=== PATIENT | male | born 1950 | race Caucasian/White ===

== ENCOUNTER 2024-04-13 20:26 | Emergency (ER) | payer MEDICARE, OTHER ==
--- NOTE | 2024-04-13 20:41 | ED Physician Documentation ---
History of Present Illness - Stated complaint Stated Complaint: DIZZY/VOMIT - Chief complaint Chief Complaint: Neuro - History obtained from History obtained from: Patient - Additonal information Additional information: 73-year-old male with history of bradycardia, vertigo presents by private vehicle for vertigo with vomiting for the last 8 hours. [place]igo began. He states that normally he is able to manage his vertigo on his own, but it became much more severe and was associated with vomiting, which is unusual for him. Patient states this is like his usual vertigo, only much more intense. Worse with eye opening and any head movement Review of Systems Constitutional: denies: Fever, Chills Respiratory: denies: Dyspnea, Cough, Wheezing GI: reports: Nausea, Vomiting. denies: Abdominal Pain, Abdominal Swelling, Constipation, Diarrhea Neurologic: reports: Other (Vertigo). denies: Generalized weakness, Focal weakness, Numbness, Difficulty speaking, Near syncope, Syncope, Seizure, Confused, Headache, Head injury PD PAST MEDICAL HISTORY - Present Medications Home Medications: Ambulatory Orders Medication Instructions Recorded Confirmed Meclizine [Antivert] 25 mg PO Q6H #60 tablet 04/13/24 Ondansetron Odt [Zofran] 4 mg TL Q6H PRN #30 tablet 04/13/24 - Allergies Allergies/Adverse Reactions: Allergies Allergy/AdvReac Type Severity Reaction Status Date / Time No Known Drug Allergies Allergy Verified 04/13/24 20:45 PD ED PE NORMAL - Vitals Vital signs reviewed: Yes - General General: Alert and oriented X 3, Well developed/nourished, Other (eyes closed, uncomfortable appearing) - Cardiac Cardiac: Strong equal pulses, Other (bradycardia) - Respiratory Respiratory: No respiratory distress, Clear bilaterally - Abdomen Abdomen: Soft, Non tender, Non distended - Derm Derm: Normal color, Warm and dry, No rash - Extremities Extremities: No deformity, No tenderness to palpate, Normal ROM s pain, No edema - Neuro Neuro: Alert and oriented X 3, natural resources technician 2-12 intact, No motor deficit, No sensory deficit, Normal speech - Psych Psych: Normal mood, Normal affect, Other (appropriate for condition) Results - Vitals Vitals: Vital Signs - 24 hr 04/13/24 04/13/24 04/13/24 20:32 21:03 21:12 Temperature 36.0 C L 36.0 C L Heart Rate 54 L 43 L 42 L Respiratory 13 17 12 Rate Blood Pressure 109/61 128/63 128/63 O2 Saturation 100 98 100 04/13/24 04/13/24 04/13/24 21:27 21:46 22:37 Temperature 36.1 C L 36.0 C L 36.1 C L Heart Rate 45 L 52 L 46 L Respiratory 16 17 17 Rate Blood Pressure 118/63 110/63 115/57 L O2 Saturation 99 99 98 04/14/24 00:06 Temperature 36.9 C Heart Rate 54 L Respiratory 18 Rate Blood Pressure 120/55 L O2 Saturation 99 Oxygen O2 Source Room air - Labs Labs: Laboratory Tests 04/13/24 04/13/24 20:47 20:47 WBC 7.9 RBC 4.16 L Hgb 13.2 L Hct 40.2 L MCV 96.6 H MCH 31.7 H MCHC 32.8 RDW 12.9 Plt Count 191 MPV 10.1 Neut # (Auto) 5.5 Lymph # (Auto) 1.7 Parke # (Auto) 0.5 Eos # (Auto) 0.1 Baso # (Auto) 0.0 Absolute Nucleated RBC 0.00 Nucleated RBC % 0.0 Sodium 138 Potassium 3.8 Chloride 105 Carbon Dioxide 26 Anion Gap 7.0 BUN 18 Creatinine 1.1 Estimated GFR (MDRD) 66 L Glucose 115 H Calcium 9.3 Magnesium 2.0 Total Bilirubin 0.4 AST 20 ALT 16 Alkaline Phosphatase 38 L Total Protein 6.7 Albumin 4.2 Globulin 2.5 Albumin/Globulin Ratio 1.7 PD Medical Decision Making - ED course Complexity details: reviewed results, re-evaluated patient, considered differential, d/w patient, d/w family ED course: Nontoxic-appearing patient with an episode of vertigo that is much more intense than his usual episodes of vertigo. Patient states that he is normally able to perform maneuver in bed, but he was feeling so poorly that he was unable to make any movements without becoming severely dizzy and vomiting. Patient's description of events does sound peripheral in nature, however since this is an abrupt worsening of his already known symptoms we will order laboratory work, CT brain, CT angio of head and neck to assess for other causes of vertigo. IV flu ids, Valium, Zofran ordered. Laboratory work is reviewed, unremarkable. CT brain and CT angio head and neck showed no acute intracranial findings. Patient reassessed, he states that he is feeling much better. He is now able to open his eyes and move his head, however he still endorses a small amount of vertigo with head movements. Oral meclizine ordered. Patient relieved to know CT results are normal. Patient has had continued improvement in symptoms after meclizine administration. Patient states that he feels well and would like to go home. Patient lives in [place] and not on [facility]. He states that he has a primary care doctor in [place]. He was advised to talk about the possibility of ENT referral if he continues to have severe episodes of vertigo. Patient requested antinausea medication to be sent home with in case he needs it in the morning before his prescription is ready, a prepack of Zofran and meclizine sent to pharmacy of choice. Departure - Departure Disposition: Home, Self Care Clinical Impression: Vertigo Condition: Stable Instructions: ED Vertigo Unspecified Prescriptions: Meclizine [Antivert] 25 mg PO Q6H #60 tablet Ondansetron Odt [Zofran] 4 mg TL Q6H PRN #30 tablet PRN Reason: Nausea / Vomiting Comments: Your laboratory work and CT imaging today were reassuring. The noncontrast CT of your brain did not show any abnormal findings, and the CT angiogram of your head and your neck did not show any blockages or tears in your arteries. You may take the meclizine 2-3 times daily as needed for severe vertigo. The Zofran prescribed can help with nausea and vomiting. I do recommend following up with an ear nose and throat doctor when you get back home to [place] as they may be able to better help control your vertigo symptoms. [facility] [place] Forms: PCP List Discharge Date/Time: 04/14/24 00:15
[2024-04-13] MEDS: SODIUM CHLORIDE 0.9% 1,000 ML IV STA (20:47)
[2024-04-13] MEDS ORDERED: iohexoL-300 100 ML VIAL ONE (20:50)
[2024-04-13 20:51] LABS: BASOPHILS % (AUTO) 0.5 %; EOSINOPHILS # (AUTO) 0.1 10^3/uL (0.0-0.7); EOSINOPHILS % (AUTO) 1.3 %; HCT - HEMATOCRIT 40.2 % (42.0-52.0); HGB - HEMOGLOBIN 13.2 g/dL (14.0-18.0); LYMPHOCYTES # (AUTO) 1.7 10^3/uL (1.5-3.5); LYMPHOCYTES % (AUTO) 21.5 %; MEAN CORPUSCULAR HEMOGLOBIN 31.7 pg (27.0-31.0); MEAN CORPUSCULAR HGB CONC 32.8 g/dL (32.0-36.0); MEAN CORPUSCULAR VOLUME 96.6 fL (80.0-94.0); MEAN PLATELET VOLUME 10.1 fL (7.4-11.4); MONOCYTES # (AUTO) 0.5 10^3/uL (0.0-1.0); MONOCYTES % (AUTO) 6.6 %; NEUTROPHILS # (AUTO) 5.5 10^3/uL (1.5-6.6); PLT - PLATELET COUNT 191 10^3/uL (130-450); RED BLOOD COUNT 4.16 10^6/uL (4.70-6.10); RED CELL DISTRIBUTION WIDTH 12.9 % (12.0-15.0); WHITE BLOOD COUNT 7.9 x10^3/uL (4.8-10.8)
[2024-04-13] MEDS: diazePAM INJ 5 MG/ML SYRINGE IVP STA (20:54)
[2024-04-13 21:06] LABS: ALBUMIN 4.2 g/dL (3.2-5.5); ALBUMIN/GLOBULIN RATIO 1.7 (1.0-2.2); BILIRUBIN,TOTAL 0.4 mg/dL (0.2-1.0); CALCIUM 9.3 mg/dL (8.5-10.3); CREATININE 1.1 mg/dL (0.6-1.3); POTASSIUM 3.8 mmol/L (3.5-4.5); TOTAL PROTEIN 6.7 g/dL (6.4-8.9)
[2024-04-13] MEDS: iohexoL-300 100 ML VIAL IVP ONE (21:46)
[2024-04-13] MEDS: ONDANSETRON 4 MG/2 ML VIAL IVP STA (21:50)
--- NOTE | 2024-04-13 22:10 | CT Report ---
PROCEDURE: Head WO INDICATIONS: severe vertigo x 12 hrs TECHNIQUE: Noncontrast 4.5 mm thick angled axial sections acquired from the foramen magnum to the vertex. For r adiation dose reduction, the following was used: automated exposure control, adjustment of mA and/or kV according to patient size. COMPARISON: None. FINDINGS: Image quality: Excellent. CSF spaces: Basal cisterns are patent. No extra-axial fluid collections. Ventricles are normal in size and shape. Brain: No midline shift. No intracranial masses or hemorrhage. [place]-white matter interface is norm al. Skull and face: Calvarium and visualized facial bones are intact, without suspicious lesions. Sinuses: Visualized sinuses and mastoids are clear. IMPRESSION: No acute intracranial pathology. Reviewed by: Juvenal Anderson MD on 04/13/2024 10:09 PM PDT Approved by: Juvenal Anderson MD on 04/13/2024 10:09 PM PDT Station ID: [id number]
--- NOTE | 2024-04-13 22:13 | CT Report ---
PROCEDURE: Angio Head/Neck INDICATIONS: severe vertigo x 12 hrs TECHNIQUE: After the administration of intravenous contrast, 1 mm thick sections acquired from the aortic arch t hrough the [place] of [place]. 3-dimensional hgajknc-qtxcmrkkd-dqtgdvoizh (MIP) and/or volume renderin g reformats were acquired of the central intracranial vasculature and neck separately. For radiation dose reduction, the following was used: automated exposure control, adjustment of mA and/or kV acco rding to patient size. CONTRAST: 100 ML OMNI 300 COMPARISON: None. FINDINGS: Image quality: Diagnostic. HEAD CT: No significant change from same day head CT. HEAD CT ANGIOGRAPHY: Anterior circulation: Intracranial internal carotid arteries are normal in size and flow. The flow within the paired anterior cerebral arteries is normal and symmetric. The flow within the middle cer ebral arteries is normal and symmetric. The anterior communicating artery is seen. No aneurysms are seen. Posterior circulation: Visualized portions of the vertebral arteries demonstrate normal caliber, and join to form a normal appearing basilar artery. Flow within the posterior cerebral arteries is norm al and symmetric. No aneurysms are seen. NECK CT ANGIOGRAPHY: Carotid system: The great vessels demonstrate a conventional anatomy as they arise from the aortic a rch. The origins of the common carotid arteries appear patent. The common carotid arteries demonstr ate normal caliber and courses. The bifurcation regions are both widely patent. The internal caroti d arteries demonstrate normal calibers and courses. Posterior circulation: The origins of the vertebral arteries both appear widely patent. The more peters perior extracranial portions of both vertebral arteries also demonstrate normal courses and calibers. They join to form a normal appearing basilar artery. Soft tissues: Visualized neck soft tissues demonstrate no suspicious abnormalities. Nondependent no dularity within the trachea measuring 5 mm (series 7, image 126). Bones: No suspicious bony lesions. Visualized cervical spine appears normally aligned. IMPRESSION: No significant intracranial arterial abnormality is seen. No significant abnormality is seen within the arteries of the neck. Nondependent nodularity within the trachea measuring 5 mm. Consider repeat low-dose chest CT in [facility] to ensure resolution, as findings could represent nondependent mucous or malignancy. The estimate of stenosis included in the report of the imaging study was calculated using the NASCET method Reviewed by: Juvenal Anderson MD on 04/13/2024 10:12 PM PDT Approved by: Juvenal Anderson MD on 04/13/2024 10:12 PM PDT Station ID: [id number]
[2024-04-13] MEDS: MECLIZINE 12.5 MG TABLET PO STA (22:45)
[2024-04-14] MEDS: MECLIZINE 12.5 MG TABLET PO STA (00:04)
[2024-04-14] MEDS: ONDANSETRON ODT 4 MG Prepack 2 TL PRN (00:04)
[2024-04-14 00:29] VITALS: BP 120/55; O2SAT 99
== END 2024-04-14 00:15 | disposition home or self-care (01) ==
LOC: ED 20:26
DX: R42 Dizziness and giddiness (principal); R11.2 Nausea with vomiting, unspecified
CPT/HCPCS: 36415; 70450; 70496; 70498; 80053; 83735; 85025; 93005; 96374; 96375; 99284; A9270; Q9967